=== PATIENT | male | born 1955 | race Caucasian/White ===

== ENCOUNTER → 2016-07-30 | Outpatient (CLI) | payer OTHER ==
[~2016-07-30] MED LIST: ACYCLOVIR400 MG PO; KEFLEX 500MG.500 MG PO; MEDROL 4MG. DOSE4 MG PO; NAPROXEN SODIU500 MG PO; SEPTRA DS 800 M1 TAB PO
--- NOTE | 2016-07-31 19:23 | RADIOLOGY REPORT PS360 ---
MRI-UP EXT ANY JNT W/O-RT ORDERING PHYSICIAN : FLACA ROJAS MD PATIENT AGE: 61 years GENDER: Male INDICATION: TRAUMATIC DISLOCATION OF RT SHOULDER HISTORY of traumatic dislocation shoulder one week ago. Old and then hit in head and shoulder. Dislocated shoulder. Pain right shoulder since then. TECHNIQUE: Multi planar multisequence imaging of the right shoulder. 1.5 T MR COMPARISON: Plain films right shoulder 07/22/2016 pre and post reduction of anterior dislocation FINDINGS Joint effusion right shoulder with fluid throughout subdeltoid subacromial bursa seen as well. Joint Fluid tracks along the biceps tendon sheath but I believe the biceps tendon remains intact.. There is been anterior dislocation and there is what appears to be a Hill-Sachs deformity at the posterior aspect of the humeral head best seen on axial image 12, 13 and sagittal image 8. Slightly abrupt cortical contour posteriorly reflecting the injury with mild bone edema beneath this region. With this there is some mild bone edema at the anterior margin of the glenoid. But I'm concerned there is been a small osseous Bankart along with anterior positioning of the anterior labrum. Axial image 16 and sagittal image 14. I have surprisingly do not see greater bone edema with this but there certainly significant edema in the soft tissues inferior to the humerus. Likely redundant inferior capsule. There is some ill-defined density seen at the inferior capsule which could reflect some residual blood or debris, but I do not see any convincing inferior glenohumeral ligament disruption.. Neutral acromion with narrowed subacromial space measuring less than 5 mm beneath tip of acromion. Increased signal at the supraspinatus tendon vertically intrasubstance and towards inferior surface. It could be a partial interstitial tear and undersurface partial supraspinatus tendon in this region( best seen sagittal image 9-5 coronal 8] but no tendon retraction or definitive full-thickness tear.. However with Fluid at the subdeltoid subacromial bursa could not exclude a small pinhole full-thickness tear. . qq A would appear to be most likely os acromiale he is seen on axial slice 6-7 and corresponding other views. Anatomical variation which can be associated with pain as well. Mild degenerative changes here at the AC joint os acromiale a. Yields mild encroachment upon supraspinatus as it passes through this medial outlet Subscapularis tendon intact. Infraspinatus tendon. Mild edema at the infraspinatus insertion possible minor injury here. Biceps tendon intact. IMPRESSION: ----- 1. Sequela of anterior dislocation. Mild HILL-SACHS deformity with associated Bankart lesion: Modest Hill-Sachs deformity evident posterior humeral head w/ mild bone edema beneath this area. Best seen sagittal image 8 Suspect Associated disruption base at base anterior glenoid labrum with suspect likely associated small osseous Bankart. . However surprisingly do not prominent bone edema to further support such (A CT could better delineate osseous findings or consider merely follow up plain films may be of benefit-. Actually now on On further review of prior plain films, we may actually may see a thin osseous Bankart on those studies from Jul 22, 2016) 2. Supraspinatus tendinopathy and likely partial tear along its undersurface supraspinatus tendon as well.. No tendon retraction & No definitive full-thickness tear evident However there generous fluid seen throughout the subdeltoid subacromial bursa suggesting which may reflect a small tiny full-thickness tear., Vs reflects generalized edema and swelling as sequela of recent dislocation injury 3. Narrowing subacromial space. Along with Incidental OS ACROMIALE also noted. 4. Joint effusion 4.
== END ==
LOC: RAD 10:16
DX: S43.004D Unspecified dislocation of right shoulder joint, subsequent encounter (principal)